=== PATIENT | female | born 1965 ===

== ENCOUNTER 2021-11-20 09:45 | Inpatient (IN) | payer OTHER ==
[~2021-11-20] VITALS: Ht 167.6 cm; Wt 83.5 kg
[2021-11-20] MEDS ORDERED: CHILDREN'S ASPI81 MG PO (13:20)
[2021-11-20] MEDS ORDERED: D3 + K2 DOTS 11 EACH PO (13:20)
[2021-11-20] MEDS ORDERED: SYNTHROID175 MCG PO (13:20)
[2021-11-25] MEDS ORDERED: PERCOCET 5-3251 EACH PO (10:30)
== END 2021-11-25 13:05 | disposition home or self-care (01) | DRG 331 ==
LOC: O/R 11-23 06:12 → SURG 11-23 06:12
PROVIDERS: ADMIT Surgery; ATTEND Surgery
PROC: 0DBP4ZZ Excision of Rectum, Percutaneous Endoscopic Approach (ICD-10-PCS; 2021-11-23)
PROC: 07BC4ZZ Excision of Pelvis Lymphatic, Percutaneous Endoscopic Approach (ICD-10-PCS; 2021-11-23)
PROC: 0DJD8ZZ Inspection of Lower Intestinal Tract, Via Natural or Artificial Opening Endoscopic (ICD-10-PCS; 2021-11-23)
PROC: 0DTN4ZZ Resection of Sigmoid Colon, Percutaneous Endoscopic Approach (ICD-10-PCS; principal; 2021-11-23 15:00)
DX: D12.5 Benign neoplasm of sigmoid colon (principal); R19.4 Change in bowel habit; R19.5 Other fecal abnormalities; E03.9 Hypothyroidism, unspecified; R59.0 Localized enlarged lymph nodes; Z20.822 Contact with and (suspected) exposure to COVID-19; E11.9 Type 2 diabetes mellitus without complications